=== PATIENT | male | born 1960 | race Caucasian/White ===

== ENCOUNTER 2017-02-28 12:35 | Inpatient (IN) | payer OTHER ==
[~2017-02-28] VITALS: Ht 170.2 cm; Wt 84.0 kg
[2017-02-28 14:46] LABS: BASOPHIL % 1.3 % (0-2); PLATELET COUNT 158 x10^3mcL (130-400)
[2017-02-28] MEDS ORDERED: COZAAR25 M1 PO (14:48)
[2017-02-28] MEDS ORDERED: METFORMIN HCL500 MG PO (14:48)
[2017-02-28 14:52] LABS: BILIRUBIN TOTAL 0.4 mg/dL (0.20-1.00); CARBON DIOXIDE 24.5 mmol/L (21-32); POTASSIUM SERUM 3.3 mmol/L (3.5-5.1)
[2017-02-28 14:57] LABS: ALBUMIN 1.8 g/dL (3.4-5.0); CREATININE SERUM 11.5 mg/dL (0.7-1.3); TOTAL PROTEIN, SERUM 6.1 g/dL (6.4-8.2)
[2017-02-28 15:18] LABS: RED CELL DISTRIBUTION WIDTH 15.8 % (11.5-14.5)
[2017-02-28 16:19] VITALS: BP 172/95
[2017-02-28 17:02] VITALS: BP 171/79
[2017-02-28 17:05] LABS: IRON 60 ug/dL (65-170); TOTAL IRON BINDING CAPACITY 140 ug/dL (250-450)
[2017-02-28 17:12] LABS: RED BLOOD CELLS 4.16 M/mm3 (4.52-5.90)
[2017-02-28 17:33] LABS: CHOLESTEROL/HDL RATIO 3.6; MAGNESIUM 2.2 mg/dL (1.8-2.4); PHOSPHOROUS 8.2 mg/dL (2.5-4.9)
[2017-02-28 17:42] VITALS: BP 172/95
[2017-02-28 18:04] VITALS: BP 171/79
[2017-02-28 18:12] LABS: CARBON DIOXIDE 23.8 mmol/L (21-32); POTASSIUM SERUM 3.6 mmol/L (3.5-5.1)
[2017-02-28 18:18] LABS: CALCIUM 4.9 mg/dL (8.5-10.1); CREATININE SERUM 11.6 mg/dL (0.7-1.3)
[2017-02-28 20:44] VITALS: BP 150/69
[2017-02-28 21:11] LABS: CARBON DIOXIDE 23.9 mmol/L (21-32); POTASSIUM SERUM 4.2 mmol/L (3.5-5.1)
[2017-02-28 21:14] LABS: CALCIUM 5.1 mg/dL (8.5-10.1); CREATININE SERUM 11.4 mg/dL (0.7-1.3)
[2017-02-28 22:33] LABS: FREE T4 1.24 ng/dL (0.76-1.46); FREE THYROXINE INDEX 2.9 ug/dL (1.4-4.5); T4(THYROXINE) 7.7 ug/dL (4.7-13.3)
[2017-03-01 01:31] LABS: CARBON DIOXIDE 24.8 mmol/L (21-32)
[2017-03-01 01:35] LABS: CALCIUM 4.9 mg/dL (8.5-10.1); CREATININE SERUM 11.4 mg/dL (0.7-1.3)
[2017-03-01 03:25] LABS: T3 TOTAL 0.41 ng/mL
[2017-03-01 05:08] LABS: UA SPECIFIC GRAVITY 1.015 (1.005-1.035); microscopic required? YES; urine erythrocyte 2+ (NEGATIVE)
[2017-03-01 05:16] LABS: AMPHETAMINE QUAL UR NONE DETECTED (NEG <=1000)
[2017-03-01 06:09] VITALS: BP 156/91
[2017-03-01 07:38] LABS: BASOPHIL % 0.1 % (0-2)
[2017-03-01 07:56] LABS: PLATELET COUNT 122 x10^3mcL (130-400); RED CELL DISTRIBUTION WIDTH 15.9 % (11.5-14.5)
[2017-03-01 08:02] LABS: rbc morphology (normal/abnorm) ABNORMAL (NORMAL)
[2017-03-01 08:25] LABS: CARBON DIOXIDE 21.1 mmol/L (21-32); MAGNESIUM 2.4 mg/dL (1.8-2.4); PHOSPHOROUS 8.5 mg/dL (2.5-4.9); POTASSIUM SERUM 4.1 mmol/L (3.5-5.1)
[2017-03-01 08:28] LABS: CREATININE SERUM 11.4 mg/dL (0.7-1.3)
[2017-03-01 08:29] LABS: CALCIUM 5.3 mg/dL (8.5-10.1)
[2017-03-01 09:40] VITALS: BP 142/71
[2017-03-01 13:07] VITALS: BP 148/72
[2017-03-01 16:03] LABS: CARBON DIOXIDE 23.2 mmol/L (21-32); POTASSIUM SERUM 3.9 mmol/L (3.5-5.1)
[2017-03-01 16:07] LABS: BASOPHIL % 0.2 % (0-2)
[2017-03-01 16:10] LABS: PLATELET COUNT 121 x10^3mcL (130-400); RED CELL DISTRIBUTION WIDTH 16.1 % (11.5-14.5)
[2017-03-01 16:14] LABS: CREATININE SERUM 11.7 mg/dL (0.7-1.3)
[2017-03-01 16:15] LABS: CALCIUM 5.1 mg/dL (8.5-10.1)
[2017-03-01 16:40] LABS: target cell (codocyte) 3+
[2017-03-01 16:41] LABS: rbc morphology (normal/abnorm) ABNORMAL (NORMAL); schistocyte (helmet cell) 2+
[2017-03-01 17:25] VITALS: BP 136/76
[2017-03-01 21:18] VITALS: BP 169/85
[2017-03-01 23:57] VITALS: BP 143/78
[2017-03-02 06:17] VITALS: BP 145/75
[2017-03-02 09:27] LABS: PLATELET COUNT 119 x10^3mcL (130-400); RED CELL DISTRIBUTION WIDTH 15.8 % (11.5-14.5)
[2017-03-02 09:46] VITALS: BP 142/78
[2017-03-02 10:37] LABS: CARBON DIOXIDE 23.9 mmol/L (21-32); MAGNESIUM 2.3 mg/dL (1.8-2.4); POTASSIUM SERUM 3.5 mmol/L (3.5-5.1)
[2017-03-02 10:46] LABS: CALCIUM 5.5 mg/dL (8.5-10.1); CREATININE SERUM 11.9 mg/dL (0.7-1.3)
[2017-03-02 11:35] LABS: BAND NEUTROPHIL 0 % (0-10); BASOPHIL 0 % (0-2); MONOCYTE 9 % (0-7); PLATELET MORPHOLOGY PLATELETS NORMAL; SEGMENTED NEUTROPHILS 80 % (37-75); rbc morphology (normal/abnorm) ABNORMAL (NORMAL)
[2017-03-02 11:36] LABS: schistocyte (helmet cell) 1+; target cell (codocyte) 1+
[2017-03-02 12:35] VITALS: BP 137/71
[2017-03-02 15:07] LABS: BASOPHIL % 0.4 % (0-2); PLATELET COUNT 143 x10^3mcL (130-400)
[2017-03-02 15:40] LABS: RED CELL DISTRIBUTION WIDTH 15.7 % (11.5-14.5)
[2017-03-02 15:42] LABS: burr cell (echinocyte) 1+; rbc morphology (normal/abnorm) ABNORMAL (NORMAL); schistocyte (helmet cell) 1+
[2017-03-02 17:17] VITALS: BP 140/74
[2017-03-02 21:21] VITALS: Ht 170.2 cm; Wt 84.0 kg
[2017-03-02 21:31] VITALS: BP 150/78
[2017-03-03 06:55] VITALS: BP 143/78
[2017-03-03 07:56] LABS: CALCIUM 6.2 mg/dL (8.5-10.1); CARBON DIOXIDE 22.3 mmol/L (21-32); MAGNESIUM 2.4 mg/dL (1.8-2.4); PHOSPHOROUS 7.8 mg/dL (2.5-4.9); POTASSIUM SERUM 3.9 mmol/L (3.5-5.1)
[2017-03-03 09:39] LABS: PLATELET COUNT 118 x10^3mcL (130-400); RED CELL DISTRIBUTION WIDTH 15.7 % (11.5-14.5)
[2017-03-03 10:16] VITALS: BP 161/85
[2017-03-03 11:17] LABS: ATYPICAL LYMPH 3 %; BAND NEUTROPHIL 0 % (0-10); BASOPHIL 0 % (0-2); MONOCYTE 3 % (0-7); SEGMENTED NEUTROPHILS 80 % (37-75)
[2017-03-03 11:19] LABS: rbc morphology (normal/abnorm) ABNORMAL (NORMAL)
[2017-03-03 11:20] LABS: PLATELET MORPHOLOGY PLT DECREASED; schistocyte (helmet cell) 3+
[2017-03-03 14:26] VITALS: BP 150/80
[2017-03-03 16:11] VITALS: BP 150/80
[2017-03-03 18:00] VITALS: BP 153/80
[2017-03-03 21:49] VITALS: BP 154/88
[2017-03-04 05:08] LABS: BASOPHIL % 0.7 % (0-2)
[2017-03-04 05:12] LABS: CALCIUM 6.2 mg/dL (8.5-10.1); CARBON DIOXIDE 25.5 mmol/L (21-32); MAGNESIUM 1.9 mg/dL (1.8-2.4); PHOSPHOROUS 5.8 mg/dL (2.5-4.9); POTASSIUM SERUM 3.5 mmol/L (3.5-5.1)
[2017-03-04 05:14] LABS: CREATININE SERUM 8.9 mg/dL (0.7-1.3)
[2017-03-04 05:25] LABS: PLATELET COUNT 115 x10^3mcL (130-400); RED CELL DISTRIBUTION WIDTH 20.6 % (11.5-14.5)
[2017-03-04 06:00] VITALS: BP 168/88
[2017-03-04 06:04] LABS: rbc morphology (normal/abnorm) ABNORMAL (NORMAL)
[2017-03-04 06:05] LABS: ovalocyte/elliptocyte 1+
[2017-03-04 09:28] VITALS: BP 167/88
[2017-03-04 12:03] VITALS: BP 163/91
[2017-03-04 16:19] VITALS: BP 165/88
[2017-03-04 21:00] VITALS: BP 162/87
[2017-03-05 06:24] VITALS: BP 160/83
[2017-03-05 06:42] LABS: BASOPHIL % 0.6 % (0-2)
[2017-03-05 06:52] LABS: PLATELET COUNT 118 x10^3mcL (130-400); RED CELL DISTRIBUTION WIDTH 20.8 % (11.5-14.5)
[2017-03-05 07:31] LABS: CALCIUM 7.7 mg/dL (8.5-10.1); CARBON DIOXIDE 26.6 mmol/L (21-32); MAGNESIUM 1.8 mg/dL (1.8-2.4); PHOSPHOROUS 4.3 mg/dL (2.5-4.9); POTASSIUM SERUM 3.6 mmol/L (3.5-5.1)
[2017-03-05 07:58] LABS: CREATININE SERUM 5.8 mg/dL (0.7-1.3)
[2017-03-05 08:13] LABS: rbc morphology (normal/abnorm) ABNORMAL (NORMAL)
[2017-03-05 08:14] LABS: ovalocyte/elliptocyte 1+; schistocyte (helmet cell) 1+
[2017-03-05 09:27] VITALS: BP 167/90
[2017-03-05 17:59] VITALS: BP 148/88
[2017-03-05 20:52] VITALS: BP 165/85
[2017-03-06 05:07] VITALS: BP 152/77
[2017-03-06 05:15] VITALS: BP 150/77
[2017-03-06 07:39] LABS: CALCIUM 7.6 mg/dL (8.5-10.1); CARBON DIOXIDE 27.1 mmol/L (21-32); MAGNESIUM 1.9 mg/dL (1.8-2.4); PHOSPHOROUS 4.6 mg/dL (2.5-4.9); POTASSIUM SERUM 3.7 mmol/L (3.5-5.1)
[2017-03-06 07:54] LABS: CREATININE SERUM 7.3 mg/dL (0.7-1.3)
[2017-03-06 08:00] LABS: BASOPHIL % 0 % (0-2); PLATELET COUNT 119 x10^3mcL (130-400); RED CELL DISTRIBUTION WIDTH 20.3 % (11.5-14.5)
[2017-03-06 08:04] LABS: ovalocyte/elliptocyte 1+; rbc morphology (normal/abnorm) ABNORMAL (NORMAL); schistocyte (helmet cell) 1+
[2017-03-06 09:45] VITALS: BP 162/80
[2017-03-06 13:30] VITALS: BP 156/86
[2017-03-06 17:40] VITALS: BP 164/89
[2017-03-06 21:07] VITALS: BP 166/90
[2017-03-07 05:43] VITALS: BP 148/75
[2017-03-07 07:08] LABS: BASOPHIL % 0.4 % (0-2)
[2017-03-07 07:16] LABS: CALCIUM 7.4 mg/dL (8.5-10.1); CARBON DIOXIDE 28.8 mmol/L (21-32); MAGNESIUM 1.6 mg/dL (1.8-2.4); PHOSPHOROUS 3.1 mg/dL (2.5-4.9); POTASSIUM SERUM 3.1 mmol/L (3.5-5.1)
[2017-03-07 07:38] LABS: CREATININE SERUM 4.5 mg/dL (0.7-1.3)
[2017-03-07 08:10] VITALS: BP 157/77
[2017-03-07 09:18] LABS: PLATELET COUNT 129 x10^3mcL (130-400); RED CELL DISTRIBUTION WIDTH 20.5 % (11.5-14.5)
[2017-03-07 13:55] VITALS: BP 158/89
[2017-03-07 13:55] LABS: rbc morphology (normal/abnorm) ABNORMAL (NORMAL)
[2017-03-07 13:56] LABS: ovalocyte/elliptocyte 1+; schistocyte (helmet cell) 1+
[2017-03-07 18:00] VITALS: BP 166/89
[2017-03-07 22:38] VITALS: BP 152/81
[2017-03-08] VITALS (10 sets, daily range): BP systolic 135–162; BP diastolic 73–84
[2017-03-08 07:31] LABS: BASOPHIL % 0.7 % (0-2)
[2017-03-08 07:33] LABS: CALCIUM 7.3 mg/dL (8.5-10.1); CARBON DIOXIDE 26.1 mmol/L (21-32); MAGNESIUM 1.6 mg/dL (1.8-2.4); PHOSPHOROUS 3.3 mg/dL (2.5-4.9); POTASSIUM SERUM 3.2 mmol/L (3.5-5.1)
[2017-03-08 07:52] LABS: CREATININE SERUM 5.9 mg/dL (0.7-1.3)
[2017-03-08 10:36] LABS: PLATELET COUNT 125 x10^3mcL (130-400); RED CELL DISTRIBUTION WIDTH 21.4 % (11.5-14.5)
[2017-03-08 14:58] LABS: rbc morphology (normal/abnorm) ABNORMAL (NORMAL)
[2017-03-08 14:59] LABS: ovalocyte/elliptocyte 1+; schistocyte (helmet cell) 1+
[2017-03-09] VITALS (7 sets, daily range): BP systolic 132–163; BP diastolic 74–82
[2017-03-09 07:00] LABS: BASOPHIL % 0.1 % (0-2); PLATELET COUNT 130 x10^3mcL (130-400)
[2017-03-09 07:15] LABS: CALCIUM 7.1 mg/dL (8.5-10.1); CARBON DIOXIDE 28.5 mmol/L (21-32); MAGNESIUM 1.5 mg/dL (1.8-2.4); PHOSPHOROUS 2.6 mg/dL (2.5-4.9); POTASSIUM SERUM 3.1 mmol/L (3.5-5.1)
[2017-03-09 07:34] LABS: RED CELL DISTRIBUTION WIDTH 20.6 % (11.5-14.5)
[2017-03-09 08:44] LABS: CREATININE SERUM 5.4 mg/dL (0.7-1.3)
[2017-03-09 11:18] LABS: rbc morphology (normal/abnorm) ABNORMAL (NORMAL)
[2017-03-09 11:19] LABS: schistocyte (helmet cell) 2+
[2017-03-10 05:15] VITALS: BP 149/76
[2017-03-10 06:52] LABS: CALCIUM 7.3 mg/dL (8.5-10.1); CARBON DIOXIDE 26.5 mmol/L (21-32); MAGNESIUM 1.5 mg/dL (1.8-2.4); PHOSPHOROUS 2.5 mg/dL (2.5-4.9); POTASSIUM SERUM 3.5 mmol/L (3.5-5.1)
[2017-03-10 06:53] LABS: CREATININE SERUM 6.5 mg/dL (0.7-1.3)
[2017-03-10 07:14] LABS: BASOPHIL % 0.9 % (0-2)
[2017-03-10 07:24] LABS: PLATELET COUNT 115 x10^3mcL (130-400); RED CELL DISTRIBUTION WIDTH 21.3 % (11.5-14.5)
[2017-03-10] MEDS ORDERED: METOPROLOL TART25 M1 PO ×2 (08:52→13:48)
[2017-03-10] MEDS ORDERED: LEVAQUIN500 M1 PO ×2 (08:53→13:48)
[2017-03-10] MEDS ORDERED: GLIPIZIDE2.5 M1 PO ×2 (09:03→13:48)
[2017-03-10] MEDS ORDERED: BD LACTINEX1.4 MG PO ×2 (09:11→13:48)
[2017-03-10 09:20] VITALS: BP 140/82
[2017-03-10 11:40] LABS: rbc morphology (normal/abnorm) ABNORMAL (NORMAL); schistocyte (helmet cell) 3+
[2017-03-10] MEDS ORDERED: NATURE'S BLEND1 TA4 PO ×2 (12:11→13:48)
[2017-03-10] MEDS ORDERED: NATURAL IRON65 MG PO ×2 (12:11→13:48)
[2017-03-10 12:13] VITALS: BP 147/79
[2017-03-10 12:24] VITALS: BP 140/82
== END 2017-03-10 14:23 | disposition home or self-care (01) | DRG 137 ==
LOC: EDSEX 12:35 → ED 12:35 → DU 14:42
PROVIDERS: Emergency Medicine; Family Medicine; Family Medicine Sports Medicine; Student in an Organized Health Care Education/Training Program
PROC: 0JBR0ZZ Excision of Left Foot Subcutaneous Tissue and Fascia, Open Approach (ICD-10-PCS; principal; 2017-02-28)
PROC: 05HM33Z Insertion of Infusion Device into Right Internal Jugular Vein, Percutaneous Approach (ICD-10-PCS; 2017-03-03)
PROC: B543ZZA Ultrasonography of Right Jugular Veins, Guidance (ICD-10-PCS; 2017-03-03)
PROC: 05HM33Z Insertion of Infusion Device into Right Internal Jugular Vein, Percutaneous Approach (ICD-10-PCS; 2017-03-04)
PROC: 30233N1 Transfusion of Nonautologous Red Blood Cells into Peripheral Vein, Percutaneous Approach (ICD-10-PCS; 2017-03-04)
PROC: 02HV33Z Insertion of Infusion Device into Superior Vena Cava, Percutaneous Approach (ICD-10-PCS; 2017-03-05)
PROC: 0W993ZZ Drainage of Right Pleural Cavity, Percutaneous Approach (ICD-10-PCS; 2017-03-08)
PROC: 0W9B3ZZ Drainage of Left Pleural Cavity, Percutaneous Approach (ICD-10-PCS; 2017-03-09)
DX: J69.0 Pneumonitis due to inhalation of food and vomit (principal); N17.0 Acute kidney failure with tubular necrosis; G93.41 Metabolic encephalopathy; I50.43 Acute on chronic combined systolic (congestive) and diastolic (congestive) heart failure; E43 Unspecified severe protein-calorie malnutrition; J90 Pleural effusion, not elsewhere classified; I13.2 Hypertensive heart and chronic kidney disease with heart failure and with stage 5 chronic kidney disease, or end stage renal disease; N18.6 End stage renal disease; E11.51 Type 2 diabetes mellitus with diabetic peripheral angiopathy without gangrene; E11.621 Type 2 diabetes mellitus with foot ulcer; L97.529 Non-pressure chronic ulcer of other part of left foot with unspecified severity; E11.21 Type 2 diabetes mellitus with diabetic nephropathy; E11.65 Type 2 diabetes mellitus with hyperglycemia; E87.1 Hypo-osmolality and hyponatremia; E83.39 Other disorders of phosphorus metabolism; E83.51 Hypocalcemia; G51.0 Bell's palsy; D56.3 Thalassemia minor; E87.6 Hypokalemia; Z68.27 Body mass index [BMI] 27.0-27.9, adult; Z79.84 Long term (current) use of oral hypoglycemic drugs
CPT/HCPCS: 32555; 82962; 83880; 84439; 86580; A4301; A4719; C1729; J0610; J1642; J1644; J1940; J2001; J2060; J2250; J2543; J2704; J2916; J3010; J3475; J3490; J7030; J7040; J7050; J7620; P9016; Q0092

== ENCOUNTER 2017-03-23 15:26 | Inpatient (IN) | payer OTHER ==
[~2017-03-23] VITALS: Ht 172.7 cm; Wt 65.1 kg
[~2017-03-23 15:26] MED LIST: BD LACTINEX1.4 MG PO; COZAAR25 M1 PO; GLIPIZIDE2.5 M1 PO; LEVAQUIN500 M1 PO; METFORMIN HCL500 MG PO; METOPROLOL TART25 M1 PO; NATURAL IRON65 MG PO; NATURE'S BLEND1 TA4 PO
[2017-03-23 18:31] LABS: BILIRUBIN TOTAL 0.3 mg/dL (0.20-1.00); CALCIUM 7.9 mg/dL (8.5-10.1); CARBON DIOXIDE 29.1 mmol/L (21-32); TOTAL PROTEIN, SERUM 6.7 g/dL (6.4-8.2)
[2017-03-23 18:35] LABS: ALBUMIN 2.2 g/dL (3.4-5.0); POTASSIUM SERUM 5.8 mmol/L (3.5-5.1)
[2017-03-23 19:33] LABS: BASOPHIL % 1.4 % (0-2); PLATELET COUNT 190 x10^3mcL (130-400)
[2017-03-23 19:38] LABS: RED CELL DISTRIBUTION WIDTH 24.9 % (11.5-14.5)
[2017-03-23 20:25] VITALS: BP 166/95
[2017-03-23 20:27] LABS: MAGNESIUM 1.9 mg/dL (1.8-2.4)
[2017-03-23 20:34] LABS: T3 TOTAL 1.08 ng/mL
[2017-03-23 20:37] LABS: FREE T4 1.11 ng/dL (0.76-1.46); T4(THYROXINE) 8.2 ug/dL (4.7-13.3)
[2017-03-23 21:09] VITALS: BP 166/88
[2017-03-24 05:35] VITALS: BP 166/91
[2017-03-24 07:03] LABS: BASOPHIL % 0.6 % (0-2); PLATELET COUNT 170 x10^3mcL (130-400)
[2017-03-24 07:18] LABS: CARBON DIOXIDE 26.3 mmol/L (21-32); MAGNESIUM 1.9 mg/dL (1.8-2.4); PHOSPHOROUS 3.5 mg/dL (2.5-4.9); POTASSIUM SERUM 4.9 mmol/L (3.5-5.1)
[2017-03-24 07:28] LABS: CREATININE SERUM 7.3 mg/dL (0.7-1.3)
[2017-03-24 08:50] LABS: microscopic required? YES; urine erythrocyte 1+ (NEGATIVE)
[2017-03-24 09:00] LABS: AMPHETAMINE QUAL UR NONE DETECTED (NEG <=1000)
[2017-03-24 09:51] VITALS: BP 172/94
[2017-03-24 10:30] VITALS: BP 162/89
[2017-03-24 11:32] LABS: rbc morphology (normal/abnorm) ABNORMAL (NORMAL)
[2017-03-24 11:33] LABS: acanthocyte (spur cell) 2+; schistocyte (helmet cell) 3+
[2017-03-24 11:34] LABS: RED CELL DISTRIBUTION WIDTH 24.8 % (11.5-14.5)
[2017-03-24 13:20] VITALS: BP 157/86
[2017-03-24 16:20] VITALS: BP 159/79
[2017-03-24 17:16] LABS: SOURCE FLUID THORACENTESIS
[2017-03-24 21:13] VITALS: BP 141/84
[2017-03-25 05:25] VITALS: BP 148/80
[2017-03-25 06:48] LABS: CALCIUM 7.8 mg/dL (8.5-10.1); CARBON DIOXIDE 26.9 mmol/L (21-32); MAGNESIUM 1.6 mg/dL (1.8-2.4); PHOSPHOROUS 3.5 mg/dL (2.5-4.9)
[2017-03-25 06:52] LABS: CREATININE SERUM 5.1 mg/dL (0.7-1.3)
[2017-03-25 07:10] LABS: BASOPHIL % 0.6 % (0-2); PLATELET COUNT 171 x10^3mcL (130-400)
[2017-03-25 07:13] LABS: rbc morphology (normal/abnorm) ABNORMAL (NORMAL)
[2017-03-25 10:08] VITALS: BP 148/76
[2017-03-25 12:40] VITALS: BP 157/87
[2017-03-25 15:37] LABS: SOURCE FLUID THORACENTESIS
[2017-03-25 17:43] VITALS: BP 141/79
[2017-03-25 21:16] VITALS: BP 142/82
[2017-03-26 04:59] VITALS: BP 152/83
[2017-03-26 06:55] LABS: PLATELET COUNT 164 x10^3mcL (130-400)
[2017-03-26 07:04] LABS: CALCIUM 7.1 mg/dL (8.5-10.1); CARBON DIOXIDE 28.3 mmol/L (21-32); MAGNESIUM 1.5 mg/dL (1.8-2.4); PHOSPHOROUS 3.9 mg/dL (2.5-4.9); POTASSIUM SERUM 3.8 mmol/L (3.5-5.1)
[2017-03-26 07:07] LABS: CREATININE SERUM 6.5 mg/dL (0.7-1.3)
[2017-03-26 07:22] VITALS: BP 156/88
[2017-03-26 07:28] LABS: RED CELL DISTRIBUTION WIDTH 24.7 % (11.5-14.5)
[2017-03-26 11:05] LABS: burr cell (echinocyte) 1+; rbc morphology (normal/abnorm) ABNORMAL (NORMAL); schistocyte (helmet cell) 1+; target cell (codocyte) 1+
[2017-03-26] MEDS ORDERED: COR6 PO (13:26)
[2017-03-26] MEDS ORDERED: LEVAQUIN500 M1 PO (13:33)
[2017-03-26] MEDS ORDERED: GLU5 PO (13:36)
[2017-03-26] MEDS ORDERED: BD LACTINEX1.4 MG PO (14:27)
[2017-03-26] MEDS ORDERED: CIPRO250 MG PO (14:27)
[2017-03-26] MEDS ORDERED: LASIX20 MG PO (15:09)
[2017-03-26] MEDS ORDERED: COR3 PO (18:02)
== END 2017-03-26 15:00 | disposition home or self-care (01) | DRG 194 ==
LOC: ED 15:26 → MU 19:49 → DU 19:49 → EDBEDREQ 19:49 → DU 20:28 → MU 03-25 09:22
PROVIDERS: Emergency Medicine; Family Medicine
PROC: 0W993ZZ Drainage of Right Pleural Cavity, Percutaneous Approach (ICD-10-PCS; principal; 2017-03-24)
PROC: 5A1D70Z Performance of Urinary Filtration, Intermittent, Less than 6 Hours Per Day (ICD-10-PCS; 2017-03-24)
PROC: 0W9B3ZZ Drainage of Left Pleural Cavity, Percutaneous Approach (ICD-10-PCS; 2017-03-26)
PROC: 5A1D70Z Performance of Urinary Filtration, Intermittent, Less than 6 Hours Per Day (ICD-10-PCS; 2017-03-26)
DX: I13.2 Hypertensive heart and chronic kidney disease with heart failure and with stage 5 chronic kidney disease, or end stage renal disease (principal); J96.00 Acute respiratory failure, unspecified whether with hypoxia or hypercapnia; N17.0 Acute kidney failure with tubular necrosis; I50.43 Acute on chronic combined systolic (congestive) and diastolic (congestive) heart failure; E43 Unspecified severe protein-calorie malnutrition; N18.6 End stage renal disease; J90 Pleural effusion, not elsewhere classified; E11.22 Type 2 diabetes mellitus with diabetic chronic kidney disease; E11.65 Type 2 diabetes mellitus with hyperglycemia; E87.5 Hyperkalemia; E83.42 Hypomagnesemia; K80.20 Calculus of gallbladder without cholecystitis without obstruction; D63.8 Anemia in other chronic diseases classified elsewhere; Z68.24 Body mass index [BMI] 24.0-24.9, adult; Z99.2 Dependence on renal dialysis; Z87.891 Personal history of nicotine dependence; Z91.19 Patient's noncompliance with other medical treatment and regimen
CPT/HCPCS: 32555; 36600; 82962; 83880; 84439; C1729; J1815; J1940; J1956; J2916; J3490; J7030; J7620; Q0092